=== PATIENT | female | born 1955 | race African-American/Black ===

== ENCOUNTER → 2018-01-05 | Outpatient (CLI) | payer BC ==
--- NOTE | 2018-01-05 10:06 | WOMENS IMAGING REPORT ---
EXAM DESCRIPTION: RETROPERITONEAL U/S COMPLETED DATE/TIME: 01/05/2018 9:09 am REASON FOR STUDY: ABDOMINAL U/S LIMITED/N28.9 Q60.0 RENAL AGENESIS, UNILATERAL N28.9 DISORDER OF K IDNEY AND URETER, UNSPECIFIED D64.9 ANEMIA, UNSPECIFIED COMPARISON: CT abdomen pelvis dated 07/03/2007 TECHNIQUE: Dynamic and static grayscale images acquired of the kidneys and bladder and recorded on P ACS. Additional selected color Doppler and spectral images recorded. LIMITATIONS: None. FINDINGS: RIGHT KIDNEY: Congenitally absent right kidney. LEFT KIDNEY: The left kidney measures 11.9 cm in length. Normal echogenicity. No solid or suspic ious masses. No hydronephrosis. No calcifications. BLADDER: No masses. OTHER FINDINGS: No other significant finding. IMPRESSION: 1. Congenitally absent right kidney. 2. Left kidney reveals normal echogenicity. No hydronephrosis. The bladder is unremarkable in appe arance. TECHNICAL DOCUMENTATION: JOB ID: [id number] [employer]- All Rights Reserved Reading location - IP/workstation name: [email or web address]
== END ==
LOC: WI 08:31
PROVIDERS: ATTEND Internal Medicine Nephrology
DX: Q60.0 Renal agenesis, unilateral (principal); N28.9 Disorder of kidney and ureter, unspecified; D64.9 Anemia, unspecified
CPT/HCPCS: 76770

== ENCOUNTER → 2018-03-15 | Outpatient (CLI) | payer BC ==
[2018-03-15 08:14] LABS: APPEARANCE,URINE CLEAR; BILIRUBIN,URINE NEGATIVE (NEGATIVE); COLOR,URINE YELLOW; GLUCOSE, URINE NEGATIVE (NEGATIVE); KETONES,URINE NEGATIVE (NEGATIVE); LEUKOCYTE ESTERASE,URINE NEGATIVE (NEGATIVE); NITRITE,URINE NEGATIVE (NEGATIVE); PROTEIN,URINE NEGATIVE (NEGATIVE); URINE SPECIFIC GRAVITY 1.011; UROBILINOGEN,URINE NEGATIVE mg/dL (<2.0)
[2018-03-15 08:25] LABS: ABSOLUTE EOSINOPHILS # (AUTO) 0.1 10^3/uL (0.0-0.6); ABSOLUTE LYMPHOCYTES (AUTO) 2.4 10^3/uL (0.5-4.7); ABSOLUTE MONOCYTES (AUTO) 0.5 10^3/uL (0.1-1.4); ABSOLUTE NEUT (AUTO) 2.8 10^3/uL (1.7-8.2); BASOPHILS % (AUTO) 0.8 % (0-2); EOSINOPHILS % (AUTO) 1.9 % (0-6); HEMATOCRIT 30.9 % (36.0-47.0); HEMOGLOBIN 10.9 g/dL (12.0-15.5); LYMPHOCYTES % (AUTO) 40.7 % (13-45); MEAN CORPUSCULAR HEMOGLOBIN 29.4 pg (27.0-33.4); MEAN CORPUSCULAR HGB CONC 35.1 g/dL (32.0-36.0); MEAN CORPUSCULAR VOLUME 84 fl (80-97); MONOCYTES % (AUTO) 8.7 % (3-13); PLATELET COUNT 395 10^3/uL (150-450); RED BLOOD COUNT 3.69 10^6/uL (3.72-5.28); RED CELL DISTRIBUTION WIDTH 15.7 % (11.5-14.0); SEGMENTED NEUTROPHILS % (AUTO) 47.9 % (42-78); TOTAL CELLS COUNTED % (AUTO) 100 %; WHITE BLOOD COUNT 5.9 10^3/uL (4.0-10.5)
[2018-03-15 08:39] LABS: ALBUMIN 4.4 g/dL (3.5-5.0); ANION GAP 15 (5-19); BLOOD UREA NITROGEN 15 mg/dL (7-20); CALCIUM 10.4 mg/dL (8.4-10.2); CARBON DIOXIDE 26 mmol/L (22-30); CHLORIDE 101 mmol/L (98-107); GLUCOSE 91 mg/dL (75-110); SODIUM 141.6 mmol/L (137-145)
[2018-03-16 13:38] LABS: CREATININE URINE 94.9 mg/dL (Not Estab.); MICROALBUMIN URINE <3.0 ug/mL (Not Estab.)
== END ==
LOC: OD 07:32
PROVIDERS: ATTEND Internal Medicine Nephrology
DX: Q60.0 Renal agenesis, unilateral (principal); N28.9 Disorder of kidney and ureter, unspecified; D64.9 Anemia, unspecified
CPT/HCPCS: 36415; 80048; 81001; 82040; 82043; 82306; 82570; 83970; 84100; 85025